=== PATIENT | female | born 1975 | race Caucasian/White ===

== ENCOUNTER 2021-08-06 08:37 | Emergency (ER) | payer BC ==
[~2021-08-06] VITALS: Ht 149.9 cm; Wt 68.0 kg
[~2021-08-06 08:37] MED LIST: EMERGEN-C 500500 MG PO; KETOROLAC TROME10 MG PO; MULTI VITAMIN1 EACH PO; OSTERA TABLET1 EACH PO
[2021-08-06] MEDS ORDERED: NAPROSYN500 MG PO (10:17)
--- NOTE | 2021-08-06 13:26 | EKG ---
[facility] [address] [place], [place] [address] Signed Normal sinus rhythm Nonspecific ST abnormality Abnormal ECG No previous ECGs available Confirmed by SARAH EDWARDS MD ([id number] on 08/06/2021 1:26:34 PM Electronically Signed By: SARAH EDWARDS MD 08/06/21 1326 PATIENT NAME: LOPEZ RUSH Electrocardiogram DATE OF : 75 PHYSICIAN: SARAH EDWARDS MD REPORT #: [id number] REPORT IS CONFIDENTIAL AND NOT TO BE RELEASED WITHOUT AUTHORIZATION
== END 2021-08-06 10:33 | disposition home or self-care (01) ==
LOC: ED 08:37
DX: R09.1 Pleurisy (principal); Z79.82 Long term (current) use of aspirin; Z79.899 Other long term (current) drug therapy
CPT/HCPCS: 71045; 80053; 84484; 85025; 85379; 93005; 93010; 99285-25